=== PATIENT | female | born 1985 | race Caucasian/White ===

== ENCOUNTER 2017-07-30 13:17 | Emergency (ER) | payer OTHER, MEDICAID ==
[2017-07-30 13:28] VITALS: TEMP 99.1
[2017-07-30] MEDS ORDERED: KETOROLAC 30 MG/1 ML SDV IM ONE (13:59)
--- NOTE | 2017-07-30 15:55 | EDPHY ---
H & P Stated Complaint: running in [email or web address] leg hip/knee/ankle pain HPI/ROS: Chief complaint: Right leg injury History of present illness: This is a 31-year-old female who presents to the emergency department for right leg injury. Patient was running when she misstepped and twisted her right leg. Since then she has had discomfort. She reports pain primarily in her knee although her hip and ankle hurt. Makes it difficult to move the leg or ambulate. She denies direct trauma. She denies open wounds. She denies abnormal coolness or paresthesias. No report of trauma or pain in other parts of the body. - Personal History LMP (Females 10-55): IUD In Place Current Tetanus/Diphtheria Vaccine: Yes Tetanus Vaccine Date: 2007 - Medical/Surgical History Hx Asthma: No Hx Chronic Respiratory Disease: No Hx Diabetes: No Hx Cardiac Disease: No Hx Renal Disease: No Hx Cirrhosis: No Hx Alcoholism: No Hx HIV/AIDS: No Hx Splenectomy or Spleen Trauma: No Other PMH: epilepsy, psych,+hiv. migraines, R temporal brain lobectomy - Social History Smoking Status: Never smoked - Physical Exam Exam: General: Alert, nontoxic Skin: No lesions consistent with trauma to the right leg. The right hip is nontender and she is moving it well. The thigh is nontender. There is mild diffuse tenderness the knee, she reports discomfort with flexion extension although the knee joint does appear stable. The lower legs nontender. Mild diffuse tenderness to the ankle, she is moving it well. Achilles tendon is intact. She is moving all digits of the foot. Vascular: DP and PT pulses 2+. Neurologic: Sensation intact throughout the right leg. Constitutional: Initial Vital Signs Temperature (C) 37.3 C 07/30/17 13:24 Heart Rate 58 L 07/30/17 13:24 Respiratory Rate 18 07/30/17 13:24 Blood Pressure 97/72 L 07/30/17 13:24 O2 Sat (%) 97 07/30/17 13:24 O2 Delivery Mode Room Air Allergies/Adverse Reactions: escitalopram Allergy (Verified 07/30/17 13:23) propranolol Allergy (Verified 07/30/17 13:23) quetiapine fumarate [From Seroquel] Allergy (Verified 07/30/17 13:23) verapamil Allergy (Verified 07/30/17 13:23) Home Medications: Medication Instructions Recorded Diazepam [Valium] 10 mg PO DAILY 10/18/15 OXcarbazepine [Trileptal] 300 mg PO 10/18/15 Rizatriptan Benzoate [Maxalt] 10 mg PO 10/18/15 SUMAtriptan [Imitrex] 25 mg PO Q2H 10/18/15 clonazePAM [KlonOPIN] 1 mg PO 10/18/15 traZODone [traZODONE 100MG (*)] 100 mg PO 10/18/15 Chlorhexidine Gluconate [Peridex] 15 ml PO TID #15 ml 10/23/15 Ondansetron HCl [Zofran] 4 mg PO Q8 PRN #14 tablet 10/23/15 oxyCODONE ORAL SOLUTION 5 mg PO Q6 PRN #1 bottle 10/23/15 [Roxicodone Intensol] Onfi 07/30/17 Medical Decision Making - Diagnostics Imaging: I viewed and interpreted images myself Procedures: Procedure: Splint placement. A Velcro knee immobilizing splint was applied. After application of the splint I returned and re-examined the patient. The splint was adequately immobilizing the joint and distal to the splint the patient's circulation and sensation was intact. Patient is a given crutches and asked to remain nonweightbearing ED Course/Re-evaluation: Patient seen under the supervision of my primary supervising physician Dr. Karen Lagos. Patient presents to the emergency depart for a right leg injury. Primary pain is in the right knee, she reports pain in the right hip and ankle although no discomfort on palpation or range of motions. X-ray of the right hip questionable avulsion fracture, although patient does not have specific pain in this region. Knee does have an effusion. Ankle unremarkable. She is placed in a knee immobilizer. Placed on crutches and asked to remain nonweightbearing. Home care is discussed including pain management. She is to follow up with Orthopedics for recheck. Return precautions given. Patient voiced understanding and agreement with plan. Differential Diagnosis: Included but not limited to contusions, sprain or strain, bony fracture, joint dislocation - Data Points Medications Given: Discontinued Medications Ketorolac Tromethamine (Toradol) 30 mg IM EDNOW ONE Stop: 07/30/17 14:00 Last Admin: 07/30/17 14:09 Dose: 30 mg Departure - Departure Disposition: Home, Routine, Self-Care Clinical Impression: Leg injury Condition: Good Instructions: Musculoskeletal Pain (ED), Knee Immobilizer (ED) Additional Instructions: Follow-up with orthopedics for continued evaluation and care Use [id number] ibuprofen or Tylenol as directed as needed for pain Ice the injury, 20 minutes on, 3 times daily for the next 2 days Elevate the injury as much as possible If symptoms worsen or new symptoms develop return to the emergency room for recheck Referrals: MOHAN LOBO [Primary Care Provider] - As per Instructions Alvino Boyd MD [Medical Doctor] - As per Instructions
[2017-07-30 16:10] VITALS: BP 137/63; PULSE 60; RESP 16; O2SAT 95
== END 2017-07-30 18:03 | disposition home or self-care (01) ==
DX: S89.91XA Unspecified injury of right lower leg, initial encounter (principal); X50.9XXA Other and unspecified overexertion or strenuous movements or postures, initial encounter; Y93.02 Activity, running
CPT/HCPCS: 73502; 73564; 73610; 96372; 99284; J1885